=== PATIENT | male | born 1965 | race Caucasian/White ===

== ENCOUNTER → 2017-09-24 | Outpatient (CLI) | payer OTHER ==
[~2017-09-24] MED LIST: OMNIPAQUE 350 MG/ML, 100ML BOTTLE ONE
[2017-09-24 09:50] LABS: BASOPHILS # (AUTO) 0.04 x10^3/uL (0-0.1); BASOPHILS % (AUTO) 1 % (0-1); EOSINOPHILS # (AUTO) 0.11 x10^3/uL (0-0.4); EOSINOPHILS % (AUTO) 2 % (1-7); LYMPHOCYTES # (AUTO) 1.17 x10^3/uL (1-3.4); LYMPHOCYTES % (AUTO) 16 % (22-44); MD NO; MEAN CORPUSCULAR HGB CONC 33.9 g/dL (33.2-36.2); MEAN CORPUSCULAR VOLUME 85.5 fL (81-97); MEAN PLATELET VOLUME 8.6 fL (7.4-10.4); MONOCYTES # (AUTO) 0.43 x10^3/uL (0.2-0.8); MONOCYTES % (AUTO) 6 % (2-9); NEUTROPHILS # (AUTO) 5.76 x10^3/uL (1.8-6.8); NEUTROPHILS % (AUTO) 77 % (42-75); PLATELET COUNT 180 x10^3/uL (130-400); RED BLOOD COUNT 5.35 x10^6/uL (4.38-5.82)
[2017-09-24 10:00] LABS: ALBUMIN 3.4 g/dL (3.4-5.0); ANION GAP 4 mmol/L (5-15); CALCIUM 8.3 mg/dL (8.5-10.1); CHLORIDE 112 mmol/L (98-107)
[2017-09-24 10:06] LABS: ALANINE AMINOTRANSFERASE 26 U/L (12-78); ALKALINE PHOSPHATASE 72 U/L (45-117); CREATININE 0.83 mg/dL (0.7-1.3); TOTAL PROTEIN 6.2 g/dL (6.4-8.2)
== END | disposition home or self-care (01) ==
LOC: RAD 09:27
PROVIDERS: ATTEND Internal Medicine
DX: K62.89 Other specified diseases of anus and rectum (principal); C18.9 Malignant neoplasm of colon, unspecified; K56.690 Other partial intestinal obstruction
CPT/HCPCS: 36415; 71260; 74177; 80053; 82378; 85025; Q9967

== ENCOUNTER → 2017-10-20 | Outpatient (CLI) | payer OTHER ==
[~2017-10-20] MED LIST changes: +ACET-1600 PO; +BUPIVACAINE/PF 0.5% ONE; +EPINEPHRINE 1 MG/ML, 1ML ONE; -OMNIPAQUE 350 MG/ML, 100ML BOTTLE ONE
== END | disposition home or self-care (01) ==
LOC: WOUND 09:21
PROVIDERS: ATTEND Internal Medicine
DX: Z43.3 Encounter for attention to colostomy (principal); Z85.048 Personal history of other malignant neoplasm of rectum, rectosigmoid junction, and anus
CPT/HCPCS: 99202

== ENCOUNTER 2017-10-26 06:01 | Inpatient (IN) | payer OTHER ==
[~2017-10-26] VITALS: Ht 177.8 cm; Wt 82.0 kg
[~2017-10-26 06:01] MED LIST changes: -BUPIVACAINE/PF 0.5% ONE; -EPINEPHRINE 1 MG/ML, 1ML ONE
[2017-10-26] MEDS ORDERED: LACTATED RINGERS 1,000 ML IV SCH (06:49)
[2017-10-26] MEDS ORDERED: LIDOCAINE-MPF 1%, 2ML INFIL ONE (07:00)
[2017-10-26] MEDS ORDERED: FENTANYL PF 100 MCG/2ML ONE ×2 (07:25→12:02)
[2017-10-26] MEDS ORDERED: PROPOFOL 10 MG/ML, 20ML ONE ×2 (07:25→07:27)
[2017-10-26] MEDS ORDERED: MIDAZOLAM 1 MG/ML, 2ML ONE (07:25)
[2017-10-26] MEDS ORDERED: WATER-INJECTION,STERILE 10 ML IV ONE (07:26)
[2017-10-26] MEDS ORDERED: ONDANSETRON 2MG/ML, 2ML ONE (07:26)
[2017-10-26] MEDS ORDERED: LIDOCAINE-MPF 2% ,5ML ONE (07:26)
[2017-10-26] MEDS ORDERED: NEOSTIGMINE 1 MG/ML, 10ML ONE (07:26)
[2017-10-26] MEDS ORDERED: METOCLOPRAMIDE 5 MG/ML, 2ML ONE (07:26)
[2017-10-26] MEDS ORDERED: DEXAMETHASONE 4 MG/ML, 1ML ONE (07:26)
[2017-10-26] MEDS ORDERED: GLYCOPYRROLATE 0.4 MG/2 ML, 2ML ONE (07:26)
[2017-10-26] MEDS ORDERED: ROCURONIUM 10MG/ML,5ML ONE ×2 (07:26→08:46)
[2017-10-26] MEDS ORDERED: EPHEDRINE 50 MG/ML, 1ML ONE (07:27)
[2017-10-26] MEDS ORDERED: PHENYLEPHRINE 10 MG/ML ONE (07:27)
[2017-10-26] MEDS ORDERED: EPINEPHRINE 1 MG/ML, 1ML ONE (07:49)
[2017-10-26] MEDS ORDERED: INDOCYANINE GREEN 25 MG VIAL ONE (07:59)
[2017-10-26] MEDS ORDERED: LABETALOL 5MG/ML, 20ML IV PRN (09:00)
[2017-10-26] MEDS ORDERED: MEPERIDINE/PF 25MG/0.5ML IVPush PRN (09:00)
[2017-10-26] MEDS ORDERED: MIDAZOLAM 1 MG/ML, 2ML IV PRN (09:00)
[2017-10-26] MEDS ORDERED: ONDANSETRON 2MG/ML, 2ML IVPush PRN ×2 (09:00→12:30)
[2017-10-26] MEDS ORDERED: BUPIVACAINE/PF-EPI 0.5% 1:200K INFIL ONE (09:12)
[2017-10-26] MEDS ORDERED: HYDROmorphone 2 MG/ML, 1ML ONE (12:02)
[2017-10-26] MEDS: FENTANYL PF 100 MCG/2ML IV PRN ×2 (12:06→12:16)
[2017-10-26] MEDS: HYDROmorphone 1 MG/ML, 1ML IV PRN ×4 (12:09→12:45)
[2017-10-26] MEDS ORDERED: hydrALAzine 20 MG/ML, 1ML IV PRN (12:30)
[2017-10-26] MEDS ORDERED: MORPHINE SULFATE 4 MG/ML, 1ML IVPush PRN (12:30)
[2017-10-26 13:20] VITALS: BP 136/84
[2017-10-26] MEDS: OXYcodone/APAP 5/325MG TABLET PO PRN ×2 (13:37→20:36)
[2017-10-26 19:10] VITALS: BP 120/77
[2017-10-26] MEDS: CEFOTETAN PMX 2GM/50ML 50 ML IVPB SCH (20:28)
[2017-10-26] MEDS: POTASSIUM CHLORIDE 20 MEQ in D5%-0.45% NACL 1,000 ML IV SCH (21:00)
[2017-10-26 23:43] VITALS: BP 103/69
[2017-10-27] MEDS: OXYcodone/APAP 5/325MG TABLET PO PRN ×5 (00:22→19:17)
[2017-10-27] MEDS: POTASSIUM CHLORIDE 20 MEQ in D5%-0.45% NACL 1,000 ML IV SCH ×2 (00:22→08:24)
[2017-10-27 02:50] VITALS: BP 110/68
[2017-10-27] MEDS: ENOXAPARIN 40 MG/0.4 ML SQ SCH (05:53)
[2017-10-27 06:58] VITALS: BP 102/64
[2017-10-27] MEDS ORDERED: MORPHINE SULFATE 4 MG/ML, 1ML IVPush PRN (08:00)
[2017-10-27] MEDS: CEFOTETAN PMX 2GM/50ML 50 ML IVPB SCH (08:24)
[2017-10-27] MEDS: KETOROLAC 30 MG/1 ML IVPush SCH ×3 (08:24→19:18)
[2017-10-27 14:24] VITALS: BP 96/51
[2017-10-27 19:24] VITALS: BP 110/72
[2017-10-28] MEDS: OXYcodone/APAP 5/325MG TABLET PO PRN ×4 (02:02→19:40)
[2017-10-28] MEDS: KETOROLAC 30 MG/1 ML IVPush SCH ×4 (02:03→19:40)
[2017-10-28 02:58] VITALS: BP 107/65
[2017-10-28] MEDS: ENOXAPARIN 40 MG/0.4 ML SQ SCH (06:03)
[2017-10-28 06:19] LABS: ANION GAP 6 mmol/L (5-15); CALCIUM 8.5 mg/dL (8.5-10.1); CHLORIDE 107 mmol/L (98-107); CREATININE 0.84 mg/dL (0.7-1.3)
[2017-10-28 06:24] LABS: BASOPHILS # (AUTO) 0.06 x10^3/uL (0-0.1); BASOPHILS % (AUTO) 1 % (0-1); EOSINOPHILS # (AUTO) 0.09 x10^3/uL (0-0.4); EOSINOPHILS % (AUTO) 1 % (1-7); LYMPHOCYTES # (AUTO) 1.34 x10^3/uL (1-3.4); LYMPHOCYTES % (AUTO) 19 % (22-44); MD NO; MEAN CORPUSCULAR HEMOGLOBIN 29.8 pg (27.5-34.5); MEAN CORPUSCULAR HGB CONC 34.1 g/dL (33.2-36.2); MEAN CORPUSCULAR VOLUME 87.3 fL (81-97); MEAN PLATELET VOLUME 9.5 fL (7.4-10.4); MONOCYTES # (AUTO) 0.46 x10^3/uL (0.2-0.8); MONOCYTES % (AUTO) 7 % (2-9); NEUTROPHILS # (AUTO) 4.97 x10^3/uL (1.8-6.8); NEUTROPHILS % (AUTO) 72 % (42-75); PLATELET COUNT 144 x10^3/uL (130-400); RED BLOOD COUNT 4.64 x10^6/uL (4.38-5.82); RED CELL DISTRIBUTION WIDTH 14.6 % (9.4-14.8)
[2017-10-28 07:24] VITALS: BP 120/69
[2017-10-28 14:01] VITALS: BP 94/66
[2017-10-28] MEDS: POTASSIUM CHLORIDE 20 MEQ in D5%-0.45% NACL 1,000 ML IV SCH (19:46)
[2017-10-28 20:12] VITALS: BP 125/70
[2017-10-29] MEDS: OXYcodone/APAP 5/325MG TABLET PO PRN ×3 (00:41→20:48)
[2017-10-29 02:00] VITALS: BP 132/74
[2017-10-29] MEDS: KETOROLAC 30 MG/1 ML IVPush SCH ×4 (02:06→20:36)
[2017-10-29 07:38] VITALS: BP 102/62
[2017-10-29] MEDS ORDERED: LIDOCAINE-MPF 2% ,5ML ONE (11:14)
[2017-10-29] MEDS ORDERED: FLUMAZENIL 0.1 MG/1 ML, 5ML ONE (11:17)
[2017-10-29] MEDS ORDERED: NALOXONE 1 MG/ML, 2ML ONE (11:17)
[2017-10-29] MEDS ORDERED: FENTANYL PF 100 MCG/2ML ONE ×2 (11:17)
[2017-10-29] MEDS ORDERED: MIDAZOLAM 1 MG/ML, 5ML ONE (11:17)
[2017-10-29] MEDS ORDERED: CEFAZOLIN PMX 1GM/50ML 50 ML ONE (11:34)
[2017-10-29 14:17] VITALS: BP 119/78
[2017-10-29] MEDS: POTASSIUM CHLORIDE 20 MEQ in D5%-0.45% NACL 1,000 ML IV SCH (20:00)
[2017-10-29 20:05] VITALS: BP 119/81
[2017-10-29] MEDS: MAGNESIUM HYDROXIDE 8%, 30ML UDC PO SCH (20:36)
[2017-10-30 01:20] VITALS: BP 124/72
[2017-10-30] MEDS: OXYcodone/APAP 5/325MG TABLET PO PRN ×2 (01:37→20:34)
[2017-10-30] MEDS: KETOROLAC 30 MG/1 ML IVPush SCH ×4 (01:37→20:34)
[2017-10-30 07:26] VITALS: BP 113/71
[2017-10-30] MEDS: MAGNESIUM HYDROXIDE 8%, 30ML UDC PO SCH ×2 (08:21→20:34)
[2017-10-30] MEDS: D5%-0.45NACL+KCL 20MEQ 1,000 ML IV SCH (12:18)
[2017-10-30 13:09] VITALS: BP 109/75
[2017-10-30 19:44] VITALS: BP 129/83
[2017-10-31 01:24] VITALS: BP 124/80
[2017-10-31] MEDS: KETOROLAC 30 MG/1 ML IVPush SCH ×4 (02:04→21:17)
[2017-10-31] MEDS: OXYcodone/APAP 5/325MG TABLET PO PRN ×2 (02:04→21:17)
[2017-10-31 07:44] VITALS: BP 107/76
[2017-10-31] MEDS: D5%-0.45NACL+KCL 20MEQ 1,000 ML IV SCH (08:18)
[2017-10-31] MEDS: MAGNESIUM HYDROXIDE 8%, 30ML UDC PO SCH ×2 (09:17→21:17)
[2017-10-31 14:21] VITALS: BP 127/68
[2017-10-31 19:12] VITALS: BP 107/73
[2017-11-01 00:49] VITALS: BP 117/70
[2017-11-01] MEDS: KETOROLAC 30 MG/1 ML IVPush SCH (02:13)
[2017-11-01 06:45] VITALS: BP 115/56
[2017-11-01] MEDS: MAGNESIUM HYDROXIDE 8%, 30ML UDC PO SCH ×2 (08:46→19:42)
[2017-11-01 12:20] VITALS: BP 116/77
[2017-11-01] MEDS ORDERED: GADOBUTROL 10 MMOL/10 ML VIAL ONE (13:57)
[2017-11-01] MEDS: OXYcodone/APAP 5/325MG TABLET PO PRN (19:42)
[2017-11-01 20:00] VITALS: BP 137/85
[2017-11-02 01:37] VITALS: BP 117/70
[2017-11-02 07:48] VITALS: BP 131/81
[2017-11-02] MEDS: MAGNESIUM HYDROXIDE 8%, 30ML UDC PO SCH (08:12)
[2017-11-02] MEDS ORDERED: OXYC-302 PO (11:24)
== END 2017-11-02 12:15 | disposition home or self-care (01) | DRG 330 ==
LOC: ORIP 06:01 → 4NOR 13:15 → DCLOUNGE 11-02 11:51
PROVIDERS: ADMIT Surgery; ATTEND Surgery
PROC: 0D1N4Z4 Bypass Sigmoid Colon to Cutaneous, Percutaneous Endoscopic Approach (ICD-10-PCS; 2017-10-26)
PROC: 0DBN8ZZ Excision of Sigmoid Colon, Via Natural or Artificial Opening Endoscopic (ICD-10-PCS; principal; 2017-10-26 08:00)
DX: C19 Malignant neoplasm of rectosigmoid junction (principal); K56.7 Ileus, unspecified; R59.9 Enlarged lymph nodes, unspecified
CPT/HCPCS: 36415; 36558; 72197; 74183; 76937; 77001; 80048; 85025; 86850; 86900; 99156; 99157; A9585; C1729; J0171; J0690; J1100; J1170; J1650; J1885; J2250; J2405; J2704; J2710; J3010; J3480; J3490; C1765; C1788; J1642; J2310; J2370; J2765; J7120; S0074

== ENCOUNTER → 2017-11-17 | Outpatient (CLI) | payer OTHER ==
[~2017-11-17] MED LIST changes: +OXYC-302 PO
== END | disposition home or self-care (01) ==
LOC: WOUND 08:42
PROVIDERS: ATTEND Internal Medicine
DX: Z93.3 Colostomy status (principal); Z85.048 Personal history of other malignant neoplasm of rectum, rectosigmoid junction, and anus
CPT/HCPCS: 99214

== ENCOUNTER → 2017-12-01 | Outpatient (CLI) | payer OTHER | END | disposition home or self-care (01) | LOC: WOUND 09:14 | PROVIDERS: ATTEND Internal Medicine | DX: Z93.3 Colostomy status (principal); Z85.048 Personal history of other malignant neoplasm of rectum, rectosigmoid junction, and anus | CPT/HCPCS: 99213 ==

== ENCOUNTER → 2018-01-20 | Outpatient (CLI) | payer OTHER | END | disposition home or self-care (01) | LOC: ROC 07:55 | PROVIDERS: ATTEND Radiology Radiation Oncology | DX: C20 Malignant neoplasm of rectum (principal) | CPT/HCPCS: 99212; G0463 ==

== ENCOUNTER → 2018-01-26 | Outpatient (CLI) | payer OTHER ==
[~2018-01-26] MED LIST changes: +GADOBUTROL 7.5 MMOL/7.5 ML VIAL ONE
== END | disposition home or self-care (01) ==
LOC: CFH 12:33
PROVIDERS: ATTEND Internal Medicine Hematology & Oncology
DX: C20 Malignant neoplasm of rectum (principal)
CPT/HCPCS: 72197; A9585

== ENCOUNTER → 2018-03-02 | Outpatient (CLI) | payer OTHER ==
[~2018-03-02] MED LIST changes: -GADOBUTROL 7.5 MMOL/7.5 ML VIAL ONE; +TAMS-11 PO
[2018-03-02 09:57] LABS: BASOPHILS # (AUTO) 0.01 x10^3/uL (0-0.1); BASOPHILS % (AUTO) 0 % (0-1); EOSINOPHILS # (AUTO) 0.09 x10^3/uL (0-0.4); EOSINOPHILS % (AUTO) 2 % (1-7); LYMPHOCYTES # (AUTO) 0.29 x10^3/uL (1-3.4); LYMPHOCYTES % (AUTO) 7 % (22-44); MD NO; MEAN CORPUSCULAR HEMOGLOBIN 30.6 pg (27.5-34.5); MEAN CORPUSCULAR HGB CONC 34.6 g/dL (33.2-36.2); MEAN CORPUSCULAR VOLUME 88.6 fL (81-97); MEAN PLATELET VOLUME 7.4 fL (7.4-10.4); MONOCYTES # (AUTO) 0.28 x10^3/uL (0.2-0.8); MONOCYTES % (AUTO) 7 % (2-9); NEUTROPHILS # (AUTO) 3.28 x10^3/uL (1.8-6.8); NEUTROPHILS % (AUTO) 83 % (42-75); PLATELET COUNT 182 x10^3/uL (130-400); RED BLOOD COUNT 4.75 x10^6/uL (4.38-5.82); RED CELL DISTRIBUTION WIDTH 14.7 % (9.4-14.8)
[2018-03-02 10:12] LABS: ALBUMIN 3.6 g/dL (3.4-5.0); ANION GAP 5 mmol/L (5-15); CALCIUM 8.8 mg/dL (8.5-10.1); CHLORIDE 109 mmol/L (98-107)
[2018-03-02 10:36] LABS: ALANINE AMINOTRANSFERASE 30 U/L (12-78); ALKALINE PHOSPHATASE 91 U/L (45-117); BILIRUBIN,TOTAL 0.6 mg/dL (0.2-1.0); TOTAL PROTEIN 6.6 g/dL (6.4-8.2)
== END | disposition home or self-care (01) ==
LOC: STAR 08:56
PROVIDERS: ATTEND Surgery
DX: Z01.818 Encounter for other preprocedural examination (principal)
CPT/HCPCS: 36415; 80053; 82378; 85025; 93005

== ENCOUNTER 2018-03-09 08:14 | Inpatient (IN) | payer OTHER ==
[~2018-03-09] VITALS: Ht 180.3 cm; Wt 86.2 kg
[2018-03-09] MEDS ORDERED: ACETAMINOPHEN 500 MG TABLET ONE (09:24)
[2018-03-09] MEDS ORDERED: SCOPOLAMINE PATCH, 1.5MG PATCH.TD72 TD ONE ×2 (09:25→09:30)
[2018-03-09] MEDS ORDERED: GABAPENTIN 300 MG CAPSULE ONE (09:26)
[2018-03-09] MEDS ORDERED: ACETAMINOPHEN 500 MG TABLET PO ONE (09:30)
[2018-03-09] MEDS ORDERED: GABAPENTIN 300 MG CAPSULE PO ONE (09:30)
[2018-03-09] MEDS ORDERED: LACTATED RINGERS 1,000 ML IV SCH (09:42)
[2018-03-09] MEDS ORDERED: PROPOFOL 10 MG/ML, 20ML ONE (11:32)
[2018-03-09] MEDS ORDERED: DEXAMETHASONE 4 MG/ML, 1ML ONE (11:32)
[2018-03-09] MEDS ORDERED: CEFOTETAN 2 GM ONE (11:32)
[2018-03-09] MEDS ORDERED: DEXMEDETOMIDINE 200 MCG/2 ML ONE (11:32)
[2018-03-09] MEDS ORDERED: NEOSTIGMINE 1 MG/ML, 10ML ONE (11:32)
[2018-03-09] MEDS ORDERED: ROCURONIUM 10MG/ML,5ML ONE (11:32)
[2018-03-09] MEDS ORDERED: FENTANYL PF 250 MCG/5ML ONE ×2 (12:09→13:40)
[2018-03-09] MEDS ORDERED: MIDAZOLAM 1 MG/ML, 2ML ONE (13:51)
[2018-03-09] MEDS ORDERED: DIPHENHYDRAMINE 50 MG/ML, 1ML IVPush PRN ×2 (15:30→18:30)
[2018-03-09] MEDS ORDERED: ONDANSETRON 2MG/ML, 2ML IV PRN ×2 (15:30→18:30)
[2018-03-09] MEDS ORDERED: MEPERIDINE/PF 25MG/0.5ML IVPush PRN (15:30)
[2018-03-09] MEDS ORDERED: hydrALAzine 20 MG/ML, 1ML IV PRN (15:30)
[2018-03-09] MEDS ORDERED: LABETALOL 5MG/ML, 20ML IV PRN (15:30)
[2018-03-09] MEDS ORDERED: OXYcodone 5 MG/5 ML ORAL.SOL UDC PO PRN (15:30)
[2018-03-09] MEDS ORDERED: FENTANYL PF 100 MCG/2ML ONE (15:31)
[2018-03-09] MEDS ORDERED: OXYcodone 5 MG/5 ML ORAL.SOL UDC ONE (15:31)
[2018-03-09] MEDS: FENTANYL PF 100 MCG/2ML IV PRN ×2 (15:36→16:12)
[2018-03-09] MEDS ORDERED: HYDROmorphone 2 MG/ML, 1ML ONE (16:27)
[2018-03-09] MEDS ORDERED: ONDANSETRON 2MG/ML, 2ML ONE (16:27)
[2018-03-09] MEDS: HYDROmorphone 1 MG/ML, 1ML IV PRN ×2 (16:30→16:38)
[2018-03-09] MEDS: OXYcodone IR 5MG TABLET PO PRN (18:20)
[2018-03-09] MEDS ORDERED: LORazepam 2 MG/ML, 1ML IVPush PRN (18:30)
[2018-03-09] MEDS ORDERED: ACETAMINOPHEN 100 ML IVPB SCH (18:30)
[2018-03-09] MEDS: NICOTINE 14MG/24 HR PATCH.TD24 TD SCH (18:30)
[2018-03-09] MEDS ORDERED: SCOPOLAMINE PATCH, 1.5MG PATCH.TD72 TD PRN (18:30)
[2018-03-09] MEDS ORDERED: CALCIUM CARBONATE 500 MG TAB.CHEW PO PRN (18:30)
[2018-03-09] MEDS ORDERED: ACETAMINOPHEN 500 MG TABLET PO SCH (18:30)
[2018-03-09] MEDS ORDERED: HYDROmorphone 1 MG/ML, 1ML IVPush PRN ×2 (18:30)
[2018-03-09] MEDS ORDERED: TRAZODONE 50MG TABLET PO PRN (18:30)
[2018-03-09] MEDS ORDERED: DEXAMETHASONE 4 MG/ML, 1ML IVPush PRN (18:30)
[2018-03-09] MEDS ORDERED: LORazepam 1MG TABLET PO PRN (18:30)
[2018-03-09] MEDS ORDERED: HALOPERIDOL 5 MG/ML IVPush PRN (18:30)
[2018-03-09] MEDS: D5%-0.45NACL+KCL 20MEQ 1,000 ML IV SCH (19:34)
[2018-03-09 19:44] VITALS: BP 95/63
[2018-03-09] MEDS: IBUPROFEN 800 MG TABLET PO SCH (20:44)
[2018-03-09] MEDS: ACETAMINOPHEN 100 ML IVPB SCH (22:41)
[2018-03-10 00:32] VITALS: BP 98/64
[2018-03-10] MEDS: ACETAMINOPHEN 100 ML IVPB SCH ×3 (02:29→16:00)
[2018-03-10 04:20] VITALS: BP 96/58
[2018-03-10] MEDS: ACETAMINOPHEN 500 MG TABLET PO SCH ×3 (04:44→18:52)
[2018-03-10 05:30] LABS: BASOPHILS % (AUTO) 0 % (0-1); EOSINOPHILS % (AUTO) 0 % (1-7); LYMPHOCYTES % (AUTO) 3 % (22-44); MD NO; MEAN CORPUSCULAR HEMOGLOBIN 30.2 pg (27.5-34.5); MEAN CORPUSCULAR HGB CONC 34.3 g/dL (33.2-36.2); MEAN CORPUSCULAR VOLUME 88.1 fL (81-97); MEAN PLATELET VOLUME 7.9 fL (7.4-10.4); MONOCYTES # (AUTO) 0.29 x10^3/uL (0.2-0.8); MONOCYTES % (AUTO) 4 % (2-9); NEUTROPHILS # (AUTO) 7.43 x10^3/uL (1.8-6.8); NEUTROPHILS % (AUTO) 94 % (42-75); PLATELET COUNT 189 x10^3/uL (130-400); RED BLOOD COUNT 4.48 x10^6/uL (4.38-5.82); RED CELL DISTRIBUTION WIDTH 14.1 % (9.4-14.8)
[2018-03-10 05:40] LABS: CALCIUM 8.2 mg/dL (8.5-10.1); CHLORIDE 106 mmol/L (98-107)
[2018-03-10 05:43] LABS: ANION GAP 7 mmol/L (5-15); CREATININE 1.06 mg/dL (0.7-1.3)
[2018-03-10] MEDS: OXYcodone IR 5MG TABLET PO PRN ×4 (06:27→21:31)
[2018-03-10 07:51] VITALS: BP 98/67
[2018-03-10] MEDS: D5%-0.45NACL+KCL 20MEQ 1,000 ML IV SCH ×2 (08:35→23:06)
[2018-03-10] MEDS: METOCLOPRAMIDE 5 MG/ML, 2ML IVPush SCH ×3 (08:43→21:31)
[2018-03-10] MEDS: IBUPROFEN 800 MG TABLET PO SCH ×3 (08:43→21:31)
[2018-03-10] MEDS: TAMSULOSIN 0.4 MG CAP.ER.24H PO SCH (08:43)
[2018-03-10 13:39] VITALS: BP 98/56
[2018-03-10] MEDS: ENOXAPARIN 40 MG/0.4 ML SQ SCH (15:18)
[2018-03-10] MEDS: NICOTINE 14MG/24 HR PATCH.TD24 TD SCH (18:30)
[2018-03-10 21:05] VITALS: BP 99/67
[2018-03-11] MEDS ORDERED: OXYcodone IR 5MG TABLET PO PRN (00:30)
[2018-03-11] MEDS: ACETAMINOPHEN 500 MG TABLET PO SCH ×4 (00:40→18:16)
[2018-03-11 02:36] VITALS: BP 95/62
[2018-03-11 05:17] LABS: ANION GAP 3 mmol/L (5-15); BASOPHILS # (AUTO) 0.01 x10^3/uL (0-0.1); BASOPHILS % (AUTO) 0 % (0-1); CALCIUM 8.3 mg/dL (8.5-10.1); CHLORIDE 105 mmol/L (98-107); EOSINOPHILS # (AUTO) 0.19 x10^3/uL (0-0.4); EOSINOPHILS % (AUTO) 4 % (1-7); LYMPHOCYTES # (AUTO) 0.27 x10^3/uL (1-3.4); LYMPHOCYTES % (AUTO) 6 % (22-44); MD NO; MEAN CORPUSCULAR HEMOGLOBIN 30.5 pg (27.5-34.5); MEAN CORPUSCULAR HGB CONC 34.8 g/dL (33.2-36.2); MEAN CORPUSCULAR VOLUME 87.5 fL (81-97); MEAN PLATELET VOLUME 7.7 fL (7.4-10.4); MONOCYTES # (AUTO) 0.36 x10^3/uL (0.2-0.8); MONOCYTES % (AUTO) 7 % (2-9); NEUTROPHILS % (AUTO) 83 % (42-75); PLATELET COUNT 148 x10^3/uL (130-400); RED BLOOD COUNT 3.94 x10^6/uL (4.38-5.82); RED CELL DISTRIBUTION WIDTH 14.4 % (9.4-14.8)
[2018-03-11] MEDS: METOCLOPRAMIDE 5 MG/ML, 2ML IVPush SCH ×4 (06:07→23:28)
[2018-03-11 07:07] VITALS: BP 103/62
[2018-03-11] MEDS: TAMSULOSIN 0.4 MG CAP.ER.24H PO SCH (08:36)
[2018-03-11] MEDS: IBUPROFEN 800 MG TABLET PO SCH ×3 (08:36→21:15)
[2018-03-11] MEDS: D5%-0.45NACL+KCL 20MEQ 1,000 ML IV SCH (13:24)
[2018-03-11 13:56] VITALS: BP 100/65
[2018-03-11] MEDS: ENOXAPARIN 40 MG/0.4 ML SQ SCH (16:01)
[2018-03-11] MEDS: NICOTINE 14MG/24 HR PATCH.TD24 TD SCH (18:16)
[2018-03-11 19:54] VITALS: BP 102/67
[2018-03-12] MEDS: ACETAMINOPHEN 500 MG TABLET PO SCH ×2 (00:34→05:54)
[2018-03-12] MEDS: D5%-0.45NACL+KCL 20MEQ 1,000 ML IV SCH (01:35)
[2018-03-12 02:03] VITALS: BP 102/65
[2018-03-12 04:42] LABS: BASOPHILS # (AUTO) 0.02 x10^3/uL (0-0.1); BASOPHILS % (AUTO) 0 % (0-1); EOSINOPHILS # (AUTO) 0.21 x10^3/uL (0-0.4); EOSINOPHILS % (AUTO) 5 % (1-7); LYMPHOCYTES # (AUTO) 0.23 x10^3/uL (1-3.4); LYMPHOCYTES % (AUTO) 5 % (22-44); MD NO; MEAN CORPUSCULAR VOLUME 88.3 fL (81-97); MEAN PLATELET VOLUME 8.3 fL (7.4-10.4); MONOCYTES # (AUTO) 0.31 x10^3/uL (0.2-0.8); MONOCYTES % (AUTO) 7 % (2-9); NEUTROPHILS # (AUTO) 3.55 x10^3/uL (1.8-6.8); NEUTROPHILS % (AUTO) 82 % (42-75); PLATELET COUNT 142 x10^3/uL (130-400); RED BLOOD COUNT 3.75 x10^6/uL (4.38-5.82); RED CELL DISTRIBUTION WIDTH 14.4 % (9.4-14.8)
[2018-03-12 04:49] LABS: ANION GAP 7 mmol/L (5-15); CALCIUM 7.7 mg/dL (8.5-10.1); CHLORIDE 108 mmol/L (98-107)
[2018-03-12] MEDS: METOCLOPRAMIDE 5 MG/ML, 2ML IVPush SCH ×2 (05:54→11:51)
[2018-03-12 07:00] VITALS: BP 121/72
[2018-03-12] MEDS: IBUPROFEN 800 MG TABLET PO SCH (09:11)
[2018-03-12] MEDS: TAMSULOSIN 0.4 MG CAP.ER.24H PO SCH (09:11)
[2018-03-12] MEDS ORDERED: ENOX40SY4 SQ (10:22)
[2018-03-31] MEDS ORDERED: TRAM-47 PO (08:42)
[2018-03-31] MEDS ORDERED: AMOX1TAB64 PO (08:43)
== END 2018-03-12 12:15 | disposition home or self-care (01) | DRG 331 ==
LOC: ORIP 08:14 → 4NOR 17:22
PROVIDERS: ADMIT Surgery; ATTEND Surgery
PROC: 0DBP4ZZ Excision of Rectum, Percutaneous Endoscopic Approach (ICD-10-PCS; 2018-03-09)
PROC: 8E0W4CZ Robotic Assisted Procedure of Trunk Region, Percutaneous Endoscopic Approach (ICD-10-PCS; 2018-03-09)
PROC: 3E0T3BZ Introduction of Anesthetic Agent into Peripheral Nerves and Plexi, Percutaneous Approach (ICD-10-PCS; 2018-03-09)
PROC: 0D1N4Z4 Bypass Sigmoid Colon to Cutaneous, Percutaneous Endoscopic Approach (ICD-10-PCS; principal; 2018-03-09 10:30)
DX: C20 Malignant neoplasm of rectum (principal); N40.0 Benign prostatic hyperplasia without lower urinary tract symptoms
CPT/HCPCS: 36415; J3490; 80048; 85025; 86850; 86900; 88309; C1729; G0378; J0131; J1100; J1170; J1650; J2250; J2405; J2704; J2710; J3010; J2765; J3480; J7120

== ENCOUNTER 2018-04-22 17:02 | Inpatient (IN) | payer OTHER ==
[~2018-04-22] VITALS: Ht 177.8 cm; Wt 79.3 kg
[~2018-04-22 17:02] MED LIST changes: -OMNIPAQUE 350 MG/ML, 100ML BOTTLE ONE; -ONDA4TAB7 PO; -OXYC5TAB3 PO; -WARF3TAB PO
--- NOTE | 2018-04-22 17:22 | NUR ---
PT AMBULATORY WITH STEADY GAIT TO BATHROOM.
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
--- NOTE | 2018-04-22 17:34 | NUR ---
PT BACK FROM BATHROOM. PT PLACED IN GOWN AND ALL MONITORS ATTACHED. NO ACUTE DISTRESS NOTED.
[2018-04-22 17:44] LABS: BASOPHILS # (AUTO) 0.01 x10^3/uL (0-0.1); BASOPHILS % (AUTO) 0 % (0-1); EOSINOPHILS # (AUTO) 0.07 x10^3/uL (0-0.4); EOSINOPHILS % (AUTO) 1 % (1-7); LYMPHOCYTES # (AUTO) 0.25 x10^3/uL (1-3.4); LYMPHOCYTES % (AUTO) 4 % (22-44); MD NO; MEAN CORPUSCULAR HEMOGLOBIN 27.9 pg (27.5-34.5); MEAN CORPUSCULAR HGB CONC 34.4 g/dL (33.2-36.2); MEAN CORPUSCULAR VOLUME 81.2 fL (81-97); MEAN PLATELET VOLUME 7.6 fL (7.4-10.4); MONOCYTES # (AUTO) 0.42 x10^3/uL (0.2-0.8); MONOCYTES % (AUTO) 7 % (2-9); NEUTROPHILS # (AUTO) 5.64 x10^3/uL (1.8-6.8); NEUTROPHILS % (AUTO) 88 % (42-75); PLATELET COUNT 209 x10^3/uL (130-400); RED BLOOD COUNT 4.64 x10^6/uL (4.38-5.82); RED CELL DISTRIBUTION WIDTH 16.1 % (9.4-14.8)
[2018-04-22 17:52] LABS: INTERNATIONAL NORMALIZED RATIO 1.05 (0.93-1.1); PROTHROMBIN TIME 11.1 Seconds (9.6-11.5)
[2018-04-22 17:56] LABS: ALANINE AMINOTRANSFERASE 53 U/L (12-78); ALBUMIN 3.4 g/dL (3.4-5.0); ANION GAP 6 mmol/L (5-15); CALCIUM 8.8 mg/dL (8.5-10.1); CHLORIDE 106 mmol/L (98-107); CREATININE 0.83 mg/dL (0.7-1.3)
[2018-04-22 17:58] LABS: ALKALINE PHOSPHATASE 129 U/L (45-117); BILIRUBIN,TOTAL 0.8 mg/dL (0.2-1.0); TOTAL PROTEIN 7.2 g/dL (6.4-8.2)
[2018-04-22] MEDS ORDERED: ENOXAPARIN 80 MG/0.8 ML SQ ONE (18:00)
[2018-04-22] MEDS ORDERED: ONDA4TAB7 PO (18:12)
--- NOTE | 2018-04-22 18:13 | NUR ---
PER HOSPITALIST, NON ADMIN LOVENOX. PT RESTING ON GURNEY. NO ACUTE DISTRESS NOTED.
[2018-04-22] MEDS: PIPERACILLIN/TAZO/PMX 3.375GM 50 ML IV SCH (18:30)
[2018-04-22] MEDS ORDERED: ONDANSETRON ODT 4 MG PO PRN (18:30)
[2018-04-22] MEDS ORDERED: DOCUSATE 100 MG CAPSULE PO PRN (18:30)
--- NOTE | 2018-04-22 18:52 | NUR ---
BEDSIDE REPORT TO JOSE CHRISTOPHER
--- NOTE | 2018-04-22 18:52 | NUR ---
PT RESTING ON GURNEY. NO ACUTE DISTRESS NOTED. LAB BEDSIDE. NO NEEDS REQUESTED AT THIS TIME.
[2018-04-22] MEDS ORDERED: PIPERACILLIN/TAZO/PMX 3.375GM 50 ML ONE (18:58)
--- NOTE | 2018-04-22 19:13 | NUR ---
REPORT OF PT FROM JOSE WISE AND ASSUMING CARE OF PT. PT MEDICATED PER JUN.
[2018-04-22 19:28] LABS: MICROSCOPIC NOT IND
[2018-04-22 19:37] LABS: CULTURE INDICATED? NO
[2018-04-22 20:01] VITALS: BP 117/82
[2018-04-22] MEDS ORDERED: HEPARIN 5,000 UNITS/ML, 1ML IV ONE (20:30)
[2018-04-22] MEDS: HEPARIN 25,000 UNITS/500ML PMX 500 ML IV PRN (20:58)
[2018-04-22] MEDS: ACETAMINOPHEN 325 MG TABLET PO PRN (20:59)
[2018-04-22] MEDS: SODIUM CHLORIDE FLUSH 10ML SYR IVF SCH (21:00)
[2018-04-23] MEDS: PIPERACILLIN/TAZO/PMX 3.375GM 50 ML IV SCH ×2 (00:30→06:04)
[2018-04-23 00:55] VITALS: BP 137/72
[2018-04-23 03:28] LABS: BASOPHILS # (AUTO) 0.01 x10^3/uL (0-0.1); BASOPHILS % (AUTO) 0 % (0-1); EOSINOPHILS # (AUTO) 0.07 x10^3/uL (0-0.4); EOSINOPHILS % (AUTO) 1 % (1-7); LYMPHOCYTES # (AUTO) 0.25 x10^3/uL (1-3.4); LYMPHOCYTES % (AUTO) 4 % (22-44); MD NO; MEAN CORPUSCULAR HEMOGLOBIN 27.6 pg (27.5-34.5); MEAN CORPUSCULAR VOLUME 81.3 fL (81-97); MEAN PLATELET VOLUME 7.4 fL (7.4-10.4); MONOCYTES # (AUTO) 0.44 x10^3/uL (0.2-0.8); MONOCYTES % (AUTO) 7 % (2-9); NEUTROPHILS # (AUTO) 5.68 x10^3/uL (1.8-6.8); NEUTROPHILS % (AUTO) 88 % (42-75); PLATELET COUNT 177 x10^3/uL (130-400); RED BLOOD COUNT 4.35 x10^6/uL (4.38-5.82); RED CELL DISTRIBUTION WIDTH 15.8 % (9.4-14.8)
[2018-04-23 03:37] LABS: ANION GAP 5 mmol/L (5-15); CALCIUM 8.5 mg/dL (8.5-10.1); CHLORIDE 108 mmol/L (98-107)
[2018-04-23 03:40] LABS: ALANINE AMINOTRANSFERASE 54 U/L (12-78); ALKALINE PHOSPHATASE 135 U/L (45-117); CREATININE 0.73 mg/dL (0.7-1.3); TOTAL PROTEIN 6.3 g/dL (6.4-8.2)
[2018-04-23] MEDS: HEPARIN 5,000 UNITS/ML, 1ML IV PRN ×3 (03:55→18:31)
[2018-04-23 07:13] LABS: HCT (SEDRATE) 35.3 % (39.2-51.8)
[2018-04-23 07:15] VITALS: BP 112/67
[2018-04-23] MEDS: TAMSULOSIN 0.4 MG CAP.ER.24H PO SCH (09:46)
[2018-04-23] MEDS: SODIUM CHLORIDE FLUSH 10ML SYR IVF SCH ×2 (09:46→21:00)
[2018-04-23 10:37] LABS: INTERNATIONAL NORMALIZED RATIO 1.13 (0.93-1.1); PROTHROMBIN TIME 11.9 Seconds (9.6-11.5)
[2018-04-23] MEDS: WARFARIN MODERAT DOSE PROTOCOL XX SCH (12:30)
[2018-04-23 12:54] VITALS: BP 100/68
[2018-04-23] MEDS: ACETAMINOPHEN 325 MG TABLET PO PRN (13:32)
[2018-04-23] MEDS ORDERED: WARFARIN 7.5 MG TABLET PO-COUM ONE (18:00)
[2018-04-23] MEDS: HEPARIN 25,000 UNITS/500ML PMX 500 ML IV PRN (18:34)
[2018-04-23 19:30] VITALS: BP 115/76
[2018-04-24 01:23] VITALS: BP 111/73
[2018-04-24 01:28] LABS: BASOPHILS # (AUTO) 0.02 x10^3/uL (0-0.1); BASOPHILS % (AUTO) 0 % (0-1); EOSINOPHILS # (AUTO) 0.01 x10^3/uL (0-0.4); EOSINOPHILS % (AUTO) 0 % (1-7); LYMPHOCYTES # (AUTO) 0.25 x10^3/uL (1-3.4); LYMPHOCYTES % (AUTO) 4 % (22-44); MD NO; MEAN CORPUSCULAR HEMOGLOBIN 27.6 pg (27.5-34.5); MEAN CORPUSCULAR VOLUME 81.1 fL (81-97); MEAN PLATELET VOLUME 7.9 fL (7.4-10.4); MONOCYTES # (AUTO) 0.45 x10^3/uL (0.2-0.8); MONOCYTES % (AUTO) 7 % (2-9); NEUTROPHILS # (AUTO) 6.01 x10^3/uL (1.8-6.8); NEUTROPHILS % (AUTO) 89 % (42-75); PLATELET COUNT 173 x10^3/uL (130-400); RED BLOOD COUNT 4.33 x10^6/uL (4.38-5.82); RED CELL DISTRIBUTION WIDTH 15.6 % (9.4-14.8)
[2018-04-24 01:33] LABS: INTERNATIONAL NORMALIZED RATIO 1.2 (0.93-1.1); PROTHROMBIN TIME 12.6 Seconds (9.6-11.5)
[2018-04-24] MEDS: OXYcodone IR 5MG TABLET PO PRN ×3 (01:42→21:13)
[2018-04-24] MEDS: HEPARIN 5,000 UNITS/ML, 1ML IV PRN ×4 (04:02→23:41)
[2018-04-24 07:30] VITALS: BP 100/65
[2018-04-24] MEDS: TAMSULOSIN 0.4 MG CAP.ER.24H PO SCH (09:25)
[2018-04-24] MEDS: SODIUM CHLORIDE FLUSH 10ML SYR IVF SCH ×2 (09:25→21:13)
[2018-04-24] MEDS: WARFARIN MODERAT DOSE PROTOCOL XX SCH (12:24)
[2018-04-24] MEDS: HEPARIN 25,000 UNITS/500ML PMX 500 ML IV PRN (13:15)
[2018-04-24 14:05] VITALS: BP 104/65
[2018-04-24] MEDS ORDERED: WARFARIN 7.5 MG TABLET PO-COUM SCH (18:00)
[2018-04-24 20:00] VITALS: BP 118/77
[2018-04-25 02:00] VITALS: BP 112/74
[2018-04-25] MEDS: OXYcodone IR 5MG TABLET PO PRN ×4 (02:59→20:02)
[2018-04-25] MEDS: HEPARIN 25,000 UNITS/500ML PMX 500 ML IV PRN ×2 (02:59→11:46)
[2018-04-25 06:14] LABS: BASOPHILS # (AUTO) 0.03 x10^3/uL (0-0.1); BASOPHILS % (AUTO) 1 % (0-1); EOSINOPHILS # (AUTO) 0.09 x10^3/uL (0-0.4); EOSINOPHILS % (AUTO) 1 % (1-7); LYMPHOCYTES # (AUTO) 0.34 x10^3/uL (1-3.4); LYMPHOCYTES % (AUTO) 5 % (22-44); MD NO; MEAN CORPUSCULAR HEMOGLOBIN 26.7 pg (27.5-34.5); MEAN CORPUSCULAR VOLUME 80.7 fL (81-97); MEAN PLATELET VOLUME 8.8 fL (7.4-10.4); MONOCYTES # (AUTO) 0.45 x10^3/uL (0.2-0.8); MONOCYTES % (AUTO) 7 % (2-9); NEUTROPHILS # (AUTO) 5.89 x10^3/uL (1.8-6.8); NEUTROPHILS % (AUTO) 87 % (42-75); PLATELET COUNT 161 x10^3/uL (130-400); RED CELL DISTRIBUTION WIDTH 15.7 % (9.4-14.8)
[2018-04-25 06:18] LABS: INTERNATIONAL NORMALIZED RATIO 1.41 (0.93-1.1); PROTHROMBIN TIME 14.7 Seconds (9.6-11.5)
[2018-04-25 06:20] LABS: ANION GAP 7 mmol/L (5-15); CALCIUM 8.3 mg/dL (8.5-10.1); CHLORIDE 103 mmol/L (98-107); CREATININE 0.68 mg/dL (0.7-1.3)
[2018-04-25] MEDS: HEPARIN 5,000 UNITS/ML, 1ML IV PRN (06:33)
[2018-04-25 06:58] VITALS: BP 107/70
[2018-04-25] MEDS: TAMSULOSIN 0.4 MG CAP.ER.24H PO SCH (10:00)
[2018-04-25] MEDS: SODIUM CHLORIDE FLUSH 10ML SYR IVF SCH ×2 (10:00→20:03)
[2018-04-25] MEDS: WARFARIN MODERAT DOSE PROTOCOL XX SCH (10:29)
[2018-04-25 13:51] VITALS: BP 110/77
[2018-04-25 15:26] LABS: % IRON SATURATION 9 % (20-55); IRON LEVEL 19 mcg/dL (65-175); TOTAL IRON BINDING CAPACITY 217 mcg/dL (250-450)
[2018-04-25] MEDS ORDERED: PHARMACOKINETIC MONITORING MC PRN (18:00)
[2018-04-25] MEDS ORDERED: PHARMACOKINETIC CONSULTATION MC ONE (18:00)
[2018-04-25] MEDS ORDERED: WARFARIN 5 MG TABLET PO-COUM ONE (18:00)
[2018-04-25] MEDS ORDERED: VANCOMYCIN PER PHARMACY MC PRN (18:00)
[2018-04-25] MEDS: VANCOMYCIN 1,600 MG in SODIUM CHLORIDE 0.9% 250 ML IV SCH (18:22)
[2018-04-25 20:00] VITALS: BP 104/69
[2018-04-26] MEDS: HEPARIN 25,000 UNITS/500ML PMX 500 ML IV PRN (00:55)
[2018-04-26 02:00] VITALS: BP 109/71
[2018-04-26] MEDS: VANCOMYCIN 1,600 MG in SODIUM CHLORIDE 0.9% 250 ML IV SCH (05:33)
[2018-04-26 07:08] VITALS: BP 110/67
[2018-04-26] MEDS: HEPARIN 5,000 UNITS/ML, 1ML IV PRN (07:21)
[2018-04-26] MEDS: TAMSULOSIN 0.4 MG CAP.ER.24H PO SCH (07:21)
[2018-04-26] MEDS: SODIUM CHLORIDE FLUSH 10ML SYR IVF SCH (07:22)
[2018-04-26 07:37] LABS: INTERNATIONAL NORMALIZED RATIO 2.01 (0.93-1.1); PROTHROMBIN TIME 20.7 Seconds (9.6-11.5)
[2018-04-26] MEDS: OXYcodone IR 5MG TABLET PO PRN (08:11)
[2018-04-26] MEDS: WARFARIN MODERAT DOSE PROTOCOL XX SCH (11:28)
[2018-04-26 14:32] VITALS: BP 112/77
[2018-04-26] MEDS ORDERED: OXYC5TAB3 PO (15:08)
[2018-04-26] MEDS ORDERED: WARF3TAB PO (15:08)
[2018-04-26] MEDS ORDERED: WARFARIN 3 MG TABLET PO-COUM SCH (15:30)
[2018-04-26] MEDS ORDERED: WARFARIN 2 MG TABLET PO-COUM ONE (18:00)
== END 2018-04-26 16:14 | disposition home or self-care (01) | DRG 175 ==
LOC: ED 17:52 → EDIP 18:23 → 4EST 19:58 → DCLOUNGE 04-26 15:55
PROVIDERS: ADMIT Internal Medicine; ATTEND Hospitalist
DX: I26.99 Other pulmonary embolism without acute cor pulmonale (principal); K65.1 Peritoneal abscess; C19 Malignant neoplasm of rectosigmoid junction; D64.9 Anemia, unspecified; N40.0 Benign prostatic hyperplasia without lower urinary tract symptoms; Z85.048 Personal history of other malignant neoplasm of rectum, rectosigmoid junction, and anus; Z82.49 Family history of ischemic heart disease and other diseases of the circulatory system; Z93.3 Colostomy status; Z90.49 Acquired absence of other specified parts of digestive tract; Z87.891 Personal history of nicotine dependence; Z86.711 Personal history of pulmonary embolism
CPT/HCPCS: 0399T; 36415; 80048; 80053; 81003; 83540; 83550; 85025; 85520; 85610; 85651; 86140; 87040; 87076; 93005; 93306; 99285; G0378; J1644; J2543; J3370; Q0162; J7050

== ENCOUNTER → 2018-04-22 | Outpatient (CLI) | payer OTHER ==
[~2018-04-22] MED LIST changes: +AMOX1TAB64 PO; +ENOX40SY4 SQ; +OMNIPAQUE 350 MG/ML, 100ML BOTTLE ONE; +ONDA4TAB7 PO; +OXYC5TAB3 PO; +TRAM-47 PO; +WARF3TAB PO
== END | disposition home or self-care (01) ==
LOC: CFH 14:02
PROVIDERS: ATTEND Surgery
DX: Z09 Encounter for follow-up examination after completed treatment for conditions other than malignant neoplasm (principal); I26.99 Other pulmonary embolism without acute cor pulmonale; K57.30 Diverticulosis of large intestine without perforation or abscess without bleeding; I70.0 Atherosclerosis of aorta; N40.0 Benign prostatic hyperplasia without lower urinary tract symptoms; Z85.048 Personal history of other malignant neoplasm of rectum, rectosigmoid junction, and anus
CPT/HCPCS: 74177; Q9967

== ENCOUNTER → 2018-04-28 | Outpatient (CLI) | payer OTHER ==
[~2018-04-28] MED LIST changes: +ONDA4TAB7 PO; +OXYC5TAB3 PO; +WARF3TAB PO
[2018-04-28 10:10] LABS: INTERNATIONAL NORMALIZED RATIO 1.94 (0.93-1.1)
== END | disposition home or self-care (01) ==
LOC: LAB 09:49
PROVIDERS: ATTEND Hospitalist
DX: I26.90 Septic pulmonary embolism without acute cor pulmonale (principal)
CPT/HCPCS: 36415; 85610

== ENCOUNTER 2018-05-05 11:42 | Outpatient (CLI) | payer OTHER ==
[2018-05-05 12:17] LABS: INTERNATIONAL NORMALIZED RATIO 1.29 (0.93-1.1); PROTHROMBIN TIME 13.5 Seconds (9.6-11.5)
== END 2018-05-05 23:59 | disposition home or self-care (01) ==
LOC: LAB 11:42
PROVIDERS: ATTEND Hospitalist
DX: I26.99 Other pulmonary embolism without acute cor pulmonale (principal)
CPT/HCPCS: 36415; 85610

== ENCOUNTER → 2018-05-12 | Outpatient (CLI) | payer OTHER ==
[2018-05-12 11:49] LABS: INTERNATIONAL NORMALIZED RATIO 1.19 (0.93-1.1); PROTHROMBIN TIME 12.5 Seconds (9.6-11.5)
== END | disposition home or self-care (01) ==
LOC: LAB 11:29
PROVIDERS: ATTEND Hospitalist
DX: I26.90 Septic pulmonary embolism without acute cor pulmonale (principal)
CPT/HCPCS: 36415; 85610

== ENCOUNTER → 2018-05-19 | Outpatient (CLI) | payer OTHER ==
[2018-05-19 11:28] LABS: INTERNATIONAL NORMALIZED RATIO 1.4 (0.93-1.1); PROTHROMBIN TIME 14.6 Seconds (9.6-11.5)
== END | disposition home or self-care (01) ==
LOC: LAB 11:08
PROVIDERS: ATTEND Hospitalist
DX: I26.99 Other pulmonary embolism without acute cor pulmonale (principal)
CPT/HCPCS: 36415; 85610

== ENCOUNTER → 2018-06-16 | Outpatient (CLI) | payer OTHER ==
[2018-06-16 12:00] LABS: INTERNATIONAL NORMALIZED RATIO 1.79 (0.93-1.1); PROTHROMBIN TIME 18.6 Seconds (9.6-11.5)
== END | disposition home or self-care (01) ==
LOC: LAB 11:31
PROVIDERS: ATTEND Internal Medicine Cardiovascular Disease
DX: I26.99 Other pulmonary embolism without acute cor pulmonale (principal); Z79.01 Long term (current) use of anticoagulants
CPT/HCPCS: 36415; 85610

== ENCOUNTER → 2018-06-21 | Outpatient (CLI) | payer OTHER ==
[2018-06-21 11:34] LABS: ALANINE AMINOTRANSFERASE 134 U/L (12-78); ALBUMIN 3.2 g/dL (3.4-5.0); ANION GAP 5 mmol/L (5-15); CALCIUM 8.8 mg/dL (8.5-10.1); CHLORIDE 110 mmol/L (98-107); CREATININE 0.67 mg/dL (0.7-1.3)
[2018-06-21 11:37] LABS: ALKALINE PHOSPHATASE 152 U/L (45-117); BILIRUBIN,TOTAL 0.6 mg/dL (0.2-1.0); TOTAL PROTEIN 6.6 g/dL (6.4-8.2)
== END | disposition home or self-care (01) ==
LOC: LAB 11:02
PROVIDERS: ATTEND Internal Medicine Hematology & Oncology
DX: Z51.11 Encounter for antineoplastic chemotherapy (principal); C20 Malignant neoplasm of rectum; I26.09 Other pulmonary embolism with acute cor pulmonale; K61.1 Rectal abscess
CPT/HCPCS: 36415; 80053

== ENCOUNTER → 2018-06-28 | Outpatient (CLI) | payer OTHER ==
[2018-06-28 11:05] LABS: INTERNATIONAL NORMALIZED RATIO 4.11 (0.93-1.1); PROTHROMBIN TIME 40.9 Seconds (9.6-11.5)
== END | disposition home or self-care (01) ==
LOC: LAB 10:46
PROVIDERS: ATTEND Internal Medicine Cardiovascular Disease
DX: I26.99 Other pulmonary embolism without acute cor pulmonale (principal); Z79.01 Long term (current) use of anticoagulants
CPT/HCPCS: 36415; 85610

== ENCOUNTER → 2018-07-12 | Outpatient (CLI) | payer OTHER ==
[2018-07-12 11:40] LABS: INTERNATIONAL NORMALIZED RATIO 2.1 (0.93-1.1); PROTHROMBIN TIME 21.4 Seconds (9.6-11.5)
== END | disposition home or self-care (01) ==
LOC: LAB 11:11
PROVIDERS: ATTEND Internal Medicine Cardiovascular Disease
DX: I26.99 Other pulmonary embolism without acute cor pulmonale (principal); Z79.01 Long term (current) use of anticoagulants
CPT/HCPCS: 36415; 85610

== ENCOUNTER → 2018-08-10 | Outpatient (CLI) | payer OTHER ==
[2018-08-10 11:32] LABS: INTERNATIONAL NORMALIZED RATIO 3.63 (0.93-1.1); PROTHROMBIN TIME 36.3 Seconds (9.6-11.5)
== END | disposition home or self-care (01) ==
LOC: LAB 11:17
PROVIDERS: ATTEND Internal Medicine Cardiovascular Disease
DX: I26.99 Other pulmonary embolism without acute cor pulmonale (principal); Z79.01 Long term (current) use of anticoagulants
CPT/HCPCS: 36415; 85610

== ENCOUNTER → 2018-08-19 | Outpatient (CLI) | payer OTHER ==
[2018-08-19 11:05] LABS: ALBUMIN 3.3 g/dL (3.4-5.0); ANION GAP 5 mmol/L (5-15); CALCIUM 8.2 mg/dL (8.5-10.1); CHLORIDE 109 mmol/L (98-107)
[2018-08-19 11:09] LABS: ALANINE AMINOTRANSFERASE 98 U/L (12-78); ALKALINE PHOSPHATASE 100 U/L (45-117); BILIRUBIN,TOTAL 0.9 mg/dL (0.2-1.0); CREATININE 0.65 mg/dL (0.7-1.3); TOTAL PROTEIN 6.3 g/dL (6.4-8.2)
== END | disposition home or self-care (01) ==
LOC: LAB 10:42
PROVIDERS: ATTEND Internal Medicine Hematology & Oncology
DX: Z51.11 Encounter for antineoplastic chemotherapy (principal); C20 Malignant neoplasm of rectum; I26.09 Other pulmonary embolism with acute cor pulmonale; K61.1 Rectal abscess
CPT/HCPCS: 36415; 80053

== ENCOUNTER → 2018-08-23 | Outpatient (CLI) | payer OTHER ==
[~2018-08-23] MED LIST changes: +OMNIPAQUE 350 MG/ML, 100ML BOTTLE ONE
== END | disposition home or self-care (01) ==
LOC: RAD 12:24
PROVIDERS: ATTEND Internal Medicine Hematology & Oncology
DX: C20 Malignant neoplasm of rectum (principal); K43.5 Parastomal hernia without obstruction or gangrene
CPT/HCPCS: 71260; 74177; J1642; Q9967

== ENCOUNTER → 2018-08-25 | Outpatient (CLI) | payer OTHER ==
[~2018-08-25] MED LIST changes: -OMNIPAQUE 350 MG/ML, 100ML BOTTLE ONE
[2018-08-25 11:07] LABS: INTERNATIONAL NORMALIZED RATIO 1.82 (0.93-1.1); PROTHROMBIN TIME 18.7 Seconds (9.6-11.5)
== END | disposition home or self-care (01) ==
LOC: LAB 10:39
PROVIDERS: ATTEND Internal Medicine Cardiovascular Disease
DX: I26.99 Other pulmonary embolism without acute cor pulmonale (principal); Z79.01 Long term (current) use of anticoagulants
CPT/HCPCS: 36415; 85610

== ENCOUNTER → 2018-09-08 | Outpatient (CLI) | payer OTHER ==
[2018-09-08 10:52] LABS: INTERNATIONAL NORMALIZED RATIO 1.89 (0.93-1.1); PROTHROMBIN TIME 19.4 Seconds (9.6-11.5)
== END | disposition home or self-care (01) ==
LOC: LAB 10:19
PROVIDERS: ATTEND Internal Medicine Cardiovascular Disease
DX: I26.99 Other pulmonary embolism without acute cor pulmonale (principal); Z79.01 Long term (current) use of anticoagulants
CPT/HCPCS: 36415; 85610

== ENCOUNTER 2018-09-29 11:01 | Outpatient (CLI) | payer OTHER ==
[2018-09-29 11:19] LABS: INTERNATIONAL NORMALIZED RATIO 1.54 (0.93-1.1); PROTHROMBIN TIME 15.9 Seconds (9.6-11.5)
== END 2018-09-29 23:59 | disposition home or self-care (01) ==
LOC: LAB 11:01
PROVIDERS: ATTEND Internal Medicine Cardiovascular Disease
DX: I26.99 Other pulmonary embolism without acute cor pulmonale (principal); Z79.01 Long term (current) use of anticoagulants
CPT/HCPCS: 36415; 85610

== ENCOUNTER → 2018-10-13 | Outpatient (CLI) | payer OTHER ==
[2018-10-13 12:27] LABS: INTERNATIONAL NORMALIZED RATIO 4.5 (0.93-1.1); PROTHROMBIN TIME 44.6 Seconds (9.6-11.5)
== END | disposition home or self-care (01) ==
LOC: LAB 11:02
PROVIDERS: ATTEND Internal Medicine Cardiovascular Disease
DX: I26.99 Other pulmonary embolism without acute cor pulmonale (principal); Z79.01 Long term (current) use of anticoagulants
CPT/HCPCS: 36415; 85610

== ENCOUNTER 2018-11-03 10:41 | Outpatient (CLI) | payer OTHER ==
[2018-11-03 11:02] LABS: INTERNATIONAL NORMALIZED RATIO 1.76 (0.93-1.1); PROTHROMBIN TIME 18.1 Seconds (9.6-11.5)
== END 2018-11-03 23:59 | disposition home or self-care (01) ==
LOC: LAB 10:41
PROVIDERS: ATTEND Internal Medicine Cardiovascular Disease
DX: I26.99 Other pulmonary embolism without acute cor pulmonale (principal); Z79.01 Long term (current) use of anticoagulants
CPT/HCPCS: 36415; 85610

== ENCOUNTER 2018-11-23 10:59 | Outpatient (CLI) | payer OTHER ==
[2018-11-23 11:18] LABS: INTERNATIONAL NORMALIZED RATIO 2.55 (0.93-1.1); PROTHROMBIN TIME 25.8 Seconds (9.6-11.5)
== END 2018-11-23 23:59 | disposition home or self-care (01) ==
LOC: LAB 10:59
PROVIDERS: ATTEND Internal Medicine Cardiovascular Disease
DX: I26.99 Other pulmonary embolism without acute cor pulmonale (principal); Z79.01 Long term (current) use of anticoagulants
CPT/HCPCS: 36415; 85610

== ENCOUNTER → 2019-03-22 | Outpatient (CLI) | payer OTHER ==
[2019-03-22 10:58] LABS: INTERNATIONAL NORMALIZED RATIO 1.52 (0.93-1.1); PROTHROMBIN TIME 15.7 Seconds (9.6-11.5)
== END | disposition home or self-care (01) ==
LOC: LAB 10:39
PROVIDERS: ATTEND Internal Medicine Cardiovascular Disease
DX: I26.99 Other pulmonary embolism without acute cor pulmonale (principal); Z87.891 Personal history of nicotine dependence
CPT/HCPCS: 36415; 85610

== ENCOUNTER → 2019-04-05 | Outpatient (CLI) | payer OTHER ==
[~2019-04-05] MED LIST changes: +OMNIPAQUE 350 MG/ML, 100ML BOTTLE ONE
== END | disposition home or self-care (01) ==
LOC: CFH 09:31
PROVIDERS: ATTEND Internal Medicine Hematology & Oncology
DX: C20 Malignant neoplasm of rectum (principal); K43.5 Parastomal hernia without obstruction or gangrene; M47.9 Spondylosis, unspecified
CPT/HCPCS: 71260; 74177; Q9967

== ENCOUNTER → 2019-04-06 | Outpatient (CLI) | payer OTHER ==
[~2019-04-06] MED LIST changes: -OMNIPAQUE 350 MG/ML, 100ML BOTTLE ONE
[2019-04-06 11:19] LABS: INTERNATIONAL NORMALIZED RATIO 2.35 (0.93-1.1); PROTHROMBIN TIME 23.9 Seconds (9.6-11.5)
== END | disposition home or self-care (01) ==
LOC: LAB 10:58
PROVIDERS: ATTEND Internal Medicine Cardiovascular Disease
DX: I26.99 Other pulmonary embolism without acute cor pulmonale (principal); Z79.01 Long term (current) use of anticoagulants
CPT/HCPCS: 36415; 85610

== ENCOUNTER 2019-05-04 10:44 | Outpatient (CLI) | payer OTHER ==
[2019-05-04 11:02] LABS: BASOPHILS # (AUTO) 0.02 x10^3/uL (0-0.1); BASOPHILS % (AUTO) 1 % (0-1); EOSINOPHILS # (AUTO) 0.13 x10^3/uL (0-0.4); EOSINOPHILS % (AUTO) 3 % (1-7); LYMPHOCYTES # (AUTO) 0.46 x10^3/uL (1-3.4); LYMPHOCYTES % (AUTO) 11 % (22-44); MD NO; MEAN CORPUSCULAR HEMOGLOBIN 29.7 pg (27.5-34.5); MEAN CORPUSCULAR HGB CONC 34.3 g/dL (33.2-36.2); MEAN CORPUSCULAR VOLUME 86.5 fL (81-97); MEAN PLATELET VOLUME 7.4 fL (7.4-10.4); MONOCYTES # (AUTO) 0.31 x10^3/uL (0.2-0.8); MONOCYTES % (AUTO) 7 % (2-9); NEUTROPHILS # (AUTO) 3.24 x10^3/uL (1.8-6.8); NEUTROPHILS % (AUTO) 78 % (42-75); PLATELET COUNT 199 x10^3/uL (130-400); RED BLOOD COUNT 4.74 x10^6/uL (4.38-5.82)
[2019-05-04 11:10] LABS: INTERNATIONAL NORMALIZED RATIO 1.38 (0.93-1.1); PROTHROMBIN TIME 14.3 Seconds (9.6-11.5)
[2019-05-04 13:04] LABS: ALBUMIN 3.5 g/dL (3.4-5.0); ANION GAP 5 mmol/L (5-15); CALCIUM 8.7 mg/dL (8.5-10.1); CHLORIDE 113 mmol/L (98-107)
[2019-05-04 13:11] LABS: ALANINE AMINOTRANSFERASE 30 U/L (12-78); ALKALINE PHOSPHATASE 84 U/L (45-117); BILIRUBIN,TOTAL 0.6 mg/dL (0.2-1.0); CREATININE 0.66 mg/dL (0.7-1.3); TOTAL PROTEIN 6.5 g/dL (6.4-8.2)
== END 2019-05-04 23:59 | disposition home or self-care (01) ==
LOC: LAB 10:44
PROVIDERS: ATTEND Internal Medicine Hematology & Oncology
DX: C20 Malignant neoplasm of rectum (principal); I26.99 Other pulmonary embolism without acute cor pulmonale; Z79.01 Long term (current) use of anticoagulants
CPT/HCPCS: 36415; 80053; 82378; 85025; 85610

== ENCOUNTER → 2019-05-18 | Outpatient (CLI) | payer OTHER ==
[2019-05-18 11:25] LABS: INTERNATIONAL NORMALIZED RATIO 1.5 (0.93-1.1)
== END | disposition home or self-care (01) ==
LOC: LAB 10:55
PROVIDERS: ATTEND Internal Medicine Cardiovascular Disease
DX: I26.99 Other pulmonary embolism without acute cor pulmonale (principal); Z79.01 Long term (current) use of anticoagulants
CPT/HCPCS: 36415; 85610

== ENCOUNTER → 2019-06-01 | Outpatient (CLI) | payer OTHER ==
[2019-06-01 11:44] LABS: INTERNATIONAL NORMALIZED RATIO 1.48 (0.93-1.1); PROTHROMBIN TIME 15.8 Seconds (9.6-11.5)
== END | disposition home or self-care (01) ==
LOC: LAB 11:25
PROVIDERS: ATTEND Internal Medicine Cardiovascular Disease
DX: I26.99 Other pulmonary embolism without acute cor pulmonale (principal); Z79.01 Long term (current) use of anticoagulants
CPT/HCPCS: 36415; 85610

== ENCOUNTER → 2019-06-19 | Outpatient (CLI) | payer OTHER ==
[2019-06-19 11:20] LABS: INTERNATIONAL NORMALIZED RATIO 2.41 (0.93-1.1); PROTHROMBIN TIME 25.8 Seconds (9.6-11.5)
== END | disposition home or self-care (01) ==
LOC: LAB 10:57
PROVIDERS: ATTEND Internal Medicine Cardiovascular Disease
DX: I26.99 Other pulmonary embolism without acute cor pulmonale (principal); Z79.01 Long term (current) use of anticoagulants
CPT/HCPCS: 36415; 85610

== ENCOUNTER 2019-06-27 11:12 | Outpatient (CLI) | payer OTHER ==
[2019-06-27 11:40] LABS: INTERNATIONAL NORMALIZED RATIO 0.98 (0.93-1.1); PROTHROMBIN TIME 10.4 Seconds (9.6-11.5)
== END 2019-06-27 23:59 | disposition home or self-care (01) ==
LOC: LAB 11:12
PROVIDERS: ATTEND Nurse Practitioner Family
DX: Z01.818 Encounter for other preprocedural examination (principal)
CPT/HCPCS: 36415; 85610

== ENCOUNTER → 2019-10-04 | Outpatient (CLI) | payer OTHER ==
[~2019-10-04] MED LIST changes: +OMNIPAQUE 350 MG/ML, 100ML BOTTLE ONE
[2019-10-04 11:23] LABS: ALANINE AMINOTRANSFERASE 29 U/L (12-78); ALBUMIN 3.5 g/dL (3.4-5.0); ANION GAP 8 mmol/L (5-15); CALCIUM 8.5 mg/dL (8.5-10.1); CHLORIDE 110 mmol/L (98-107); CREATININE 0.67 mg/dL (0.7-1.3)
[2019-10-04 11:25] LABS: ALKALINE PHOSPHATASE 88 U/L (45-117); BILIRUBIN,TOTAL 0.5 mg/dL (0.2-1.0); TOTAL PROTEIN 6.5 g/dL (6.4-8.2)
== END | disposition home or self-care (01) ==
LOC: CFH 09:36
PROVIDERS: ATTEND Internal Medicine Hematology & Oncology
DX: C20 Malignant neoplasm of rectum (principal); K43.5 Parastomal hernia without obstruction or gangrene
CPT/HCPCS: 36415; 71260; 74177; 80053; Q9967

== ENCOUNTER → 2019-12-21 | Outpatient (CLI) | payer OTHER ==
[~2019-12-21] MED LIST changes: -OMNIPAQUE 350 MG/ML, 100ML BOTTLE ONE; +OMNIPAQUE 350 MG/ML, 75ML BOTTLE ONE
[2019-12-21 12:40] LABS: CHLORIDE 113 mmol/L (98-107)
[2019-12-21 12:58] LABS: ALANINE AMINOTRANSFERASE 21 U/L (12-78); ALBUMIN 3.8 g/dL (3.4-5.0); ALKALINE PHOSPHATASE 73 U/L (45-117); ANION GAP 7 mmol/L (5-15); BILIRUBIN,TOTAL 0.8 mg/dL (0.2-1.0); CALCIUM 8.6 mg/dL (8.5-10.1); CREATININE 0.66 mg/dL (0.7-1.3); TOTAL PROTEIN 6.6 g/dL (6.4-8.2)
== END | disposition home or self-care (01) ==
LOC: CFH 10:07
PROVIDERS: ATTEND Internal Medicine Hematology & Oncology
DX: C20 Malignant neoplasm of rectum (principal); R91.8 Other nonspecific abnormal finding of lung field; K61.1 Rectal abscess; I26.09 Other pulmonary embolism with acute cor pulmonale
CPT/HCPCS: 36415; 71260; 80053; 82378; Q9967

== ENCOUNTER → 2020-04-03 | Outpatient (CLI) | payer OTHER ==
[~2020-04-03] MED LIST changes: -OMNIPAQUE 350 MG/ML, 75ML BOTTLE ONE
[2020-04-03 09:09] LABS: BASOPHILS % (AUTO) 1 % (0-1); EOSINOPHILS % (AUTO) 2 % (1-7); LYMPHOCYTES % (AUTO) 10 % (22-44); MD NO; MEAN CORPUSCULAR HEMOGLOBIN 29.9 pg (27.5-34.5); MEAN CORPUSCULAR HGB CONC 34.9 g/dL (33.2-36.2); MONOCYTES % (AUTO) 7 % (2-9); NEUTROPHILS % (AUTO) 79 % (42-75); PLATELET COUNT 163 x10^3/uL (130-400); RED BLOOD COUNT 5.01 x10^6/uL (4.38-5.82); RED CELL DISTRIBUTION WIDTH 14.9 % (9.4-14.8)
[2020-04-03 09:18] LABS: ALANINE AMINOTRANSFERASE 23 U/L (12-78); ALBUMIN 3.7 g/dL (3.4-5.0); ANION GAP 6 mmol/L (5-15); CALCIUM 8.5 mg/dL (8.5-10.1); CHLORIDE 114 mmol/L (98-107)
[2020-04-03 09:24] LABS: ALKALINE PHOSPHATASE 81 U/L (45-117); BILIRUBIN,TOTAL 0.6 mg/dL (0.2-1.0); TOTAL PROTEIN 6.5 g/dL (6.4-8.2)
== END | disposition home or self-care (01) ==
LOC: LAB 08:46
PROVIDERS: ATTEND Internal Medicine Hematology & Oncology
DX: Z51.11 Encounter for antineoplastic chemotherapy (principal); C20 Malignant neoplasm of rectum; K61.1 Rectal abscess; I26.09 Other pulmonary embolism with acute cor pulmonale
CPT/HCPCS: 36415; 80053; 82378; 85025

== ENCOUNTER → 2020-09-24 | Outpatient (CLI) | payer OTHER ==
[~2020-09-24] MED LIST changes: -OXYC-302 PO; +OXYC1TAB14 PO; -OXYC5TAB3 PO; +OXYC5TAB98 PO
[2020-09-24 10:30] LABS: BASOPHILS % (AUTO) 1 % (0-1); EOSINOPHILS % (AUTO) 3 % (1-7); LYMPHOCYTES % (AUTO) 13 % (22-44); MD NO; MEAN CORPUSCULAR HEMOGLOBIN 30.1 pg (27.5-34.5); MEAN CORPUSCULAR HGB CONC 34.7 g/dL (33.2-36.2); MEAN PLATELET VOLUME 8.1 fL (7.4-10.4); MONOCYTES % (AUTO) 7 % (2-9); NEUTROPHILS % (AUTO) 76 % (42-75); PLATELET COUNT 150 x10^3/uL (130-400); RED BLOOD COUNT 4.97 x10^6/uL (4.38-5.82); RED CELL DISTRIBUTION WIDTH 14.3 % (9.4-14.8)
[2020-09-24 10:40] LABS: ALANINE AMINOTRANSFERASE 25 U/L (12-78); ALBUMIN 3.5 g/dL (3.4-5.0); ANION GAP 4 mmol/L (5-15); CALCIUM 8.3 mg/dL (8.5-10.1); CHLORIDE 115 mmol/L (98-107)
[2020-09-24 10:45] LABS: ALKALINE PHOSPHATASE 66 U/L (45-117); BILIRUBIN,TOTAL 0.4 mg/dL (0.2-1.0); CREATININE 0.61 mg/dL (0.7-1.3); TOTAL PROTEIN 6.1 g/dL (6.4-8.2)
== END | disposition home or self-care (01) ==
LOC: LAB 10:13
PROVIDERS: ATTEND Internal Medicine Hematology & Oncology
DX: C20 Malignant neoplasm of rectum (principal); K61.1 Rectal abscess; Z51.11 Encounter for antineoplastic chemotherapy; I26.09 Other pulmonary embolism with acute cor pulmonale
CPT/HCPCS: 36415; 80053; 82378; 85025

== ENCOUNTER 2020-10-25 06:59 | Day surgery (SDC) | payer OTHER ==
[~2020-10-25] VITALS: Ht 172.7 cm; Wt 83.2 kg
[2020-10-25] MEDS ORDERED: SODIUM CHLORIDE 0.9% 1,000 ML IV SCH (07:30)
[2020-10-25 07:49] VITALS: BP 115/74
[2020-10-25] MEDS ORDERED: MIDAZOLAM 1 MG/ML, 5ML ONE ×2 (09:39)
[2020-10-25] MEDS ORDERED: NALOXONE 1 MG/ML, 2ML ONE (09:39)
[2020-10-25] MEDS ORDERED: FENTANYL PF 100 MCG/2ML ONE (09:39)
[2020-10-25] MEDS ORDERED: FLUMAZENIL 0.1 MG/1 ML, 5ML ONE (09:39)
== END 2020-10-25 11:30 | disposition home or self-care (01) ==
LOC: RAD 06:59
PROVIDERS: ATTEND Internal Medicine Hematology & Oncology
DX: R91.1 Solitary pulmonary nodule (principal); C20 Malignant neoplasm of rectum; Z79.899 Other long term (current) drug therapy; Z87.891 Personal history of nicotine dependence; Z80.0 Family history of malignant neoplasm of digestive organs
CPT/HCPCS: 32408; 99156; J2250; J3010; J7030; 77012; J2310